=== PATIENT | female | born 1940 | race Caucasian/White ===

== ENCOUNTER 2016-08-01 19:28 | Emergency (ER) | payer OTHER ==
[~2016-08-01 19:28] MED LIST: ASAB PO; DRONED400 PO; KLOR-CON20 MEQ PO; L80 PO; LEVOTHYROXIN50 MCG PO; PRADAXA150 MG PO; SPIRIVA INH; SYMBICORT 160/41 INH INH; VENTOLIN HFA INH; VYTORIN 10/40 T1 TAB PO
[2016-08-01 20:18] LABS: BASOPHILS 0.3 %; BASOPHILS ABSOLUTE 0.02 10/3/uL (0.0-0.16); EOSINOPHILS 2.7 %; ER CBC TAT 0 Hrs 07 Mins; HEMATOCRIT 34.9 % (36.0-48.0); HEMOGLOBIN 11.4 g/dL (12.0-16.0); IMMATURE GRANULOCYTES 0.1 %; IMMATURE GRANULOCYTES ABSOLUTE 0.01 10/3/uL (0.0-0.11); LYMPHOCYTES 29.9 %; LYMPHOCYTES ABSOLUTE 2.23 10/3/uL (0.67-4.30); MEAN CORPUS HGB CONC 32.7 g/dL (32.0-36.0); MEAN PLATELET VOLUME 10.5 fL (9.2-13.0); MONOCYTES 8.4 %; MONOCYTES ABSOLUTE 0.63 10/3/uL (0.21-1.20); NEUTROPHILS 58.6 %; NEUTROPHILS ABSOLUTE 4.38 10/3/uL (2.02-8.40); RBC DISTRIBUTION WIDTH 16.4 % (12.0-16.0); RED CELL COUNT 3.37 10/6/uL (4.0-5.6); WHITE BLOOD CELLS 7.5 10/3/uL (4.5-10.5)
[2016-08-01 20:19] LABS: MANUAL DIFF NO %; MEAN CORPUSCULAR HEMOGLOB 33.8 pg (26.0-34.0); MEAN CORPUSCULAR VOLUME 103.6 fL (80-100); PLATELET COUNT 117 10/3/uL (150-400)
[2016-08-01 20:27] LABS: INTERNATIONAL NORMAL RATI 1.3 UNITS (-); PARTIAL THROMBO TIME 34.5 SEC (22.5-37.2); PROTIME (NOT ORD) 16.4 SEC (12.0-14.5)
[2016-08-01 20:33] LABS: BUN (BLOOD UREA NITROGEN) 13 MG/DL (6-23); CHEST PAIN PROFILE TAT 0 Hrs 22 Mins; CHLORIDE, SERUM 102 MMOL/L (96-112); CO2 (CARBON DIOXIDE) 27 MMOL/L (24-34); CREATININE 0.99 MG/DL (0.55-1.02); GFR AFRICAN AMERICAN 65 ML/MIN (>=60); GFR NON AFRICAN AMERICAN 56 ML/MIN (>=60); POTASSIUM, SERUM 3.6 MMOL/L (3.5-5.3); SODIUM, SERUM 140 MMOL/L (135-148); TROPONIN I <0.02 NG/ML (<0.05)
[2016-08-01 20:36] LABS: GLUCOSE, SERUM 93 MG/DL (60-99)
[2016-10-04] MEDS ORDERED: Z300 PO (14:11)
[2016-10-04] MEDS ORDERED: LIPITOR40 PO (14:11)
[2016-10-04] MEDS ORDERED: COREG3 PO (14:11)
[2016-10-04] MEDS ORDERED: L40 PO (14:12)
[2016-10-04] MEDS ORDERED: NEUR100 PO (14:12)
[2016-10-04] MEDS ORDERED: RYTHMOL150 MG PO (14:13)
[2016-10-04] MEDS ORDERED: KLOR-CON M2020 MEQ PO (14:22)
[2016-10-05] MEDS ORDERED: ULTRAM50 PO (12:46)
[2017-01-17] MEDS ORDERED: SPIRIVA RESPIMAT INH (12:50)
== END 2016-08-01 22:37 | disposition home or self-care (01) ==
LOC: ER 19:28
PROVIDERS: Nurse Practitioner Acute Care
DX: R00.2 Palpitations (principal); J44.9 Chronic obstructive pulmonary disease, unspecified; I10 Essential (primary) hypertension; I25.2 Old myocardial infarction; Z95.1 Presence of aortocoronary bypass graft; K21.9 Gastro-esophageal reflux disease without esophagitis; I48.91 Unspecified atrial fibrillation; Z87.891 Personal history of nicotine dependence; Z88.5 Allergy status to narcotic agent; Z79.82 Long term (current) use of aspirin; Z79.899 Other long term (current) drug therapy
CPT/HCPCS: 71010; 80048; 83735; 83880; 84484; 85025; 85610; 85730; 93005; 99285